=== PATIENT | male | born 1990 | race Two or more races ===

== ENCOUNTER 2017-11-28 07:04 | Emergency (ER) | payer OTHER ==
[~2017-11-28] VITALS: Ht 167.6 cm; Wt 81.6 kg
[~2017-11-28 07:04] MED LIST: CEPH-264 PO; OXYC-323 PO
[2017-11-28 07:05] VITALS: BP 152/84
--- NOTE | 2017-11-28 07:18 | PHYS DOC ---
Past Medical History Past Medical History: No Pertinent History Past Surgical History: Appendectomy Alcohol Use: None Drug Use: None Adult General Chief Complaint Chief Complaint: SORE THROAT HPI HPI Patient is a 26-year-old male who presents with complaint of cough and wheezing as well as shortness of breath. Patient states that yesterday he had come in contact with some sawdust. 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 He states that at that time he used to have an inhaler that he used. He states that was about 5-6 years ago. He indicates he is not had any real problems with wheezing since that time. He states that today he is having difficulty with breathing. He denies any chest pain or fever. He does admit to sore throat and feels like he has a stab in his throat every time he swallows. Review of Systems Review of Systems Constitutional: Denies fever or chills [] Eyes: Denies change in visual acuity, redness, or eye pain [] HENT: Denies nasal congestion or sore throat [] Respiratory: Denies cough or shortness of breath [] Cardiovascular: No additional information not addressed in HPI [] GI: Denies abdominal pain, nausea, vomiting, bloody stools or diarrhea [] : Denies dysuria or hematuria [] Musculoskeletal: Denies back pain or joint pain [] Integument: Denies rash or skin lesions [] Neurologic: Denies headache, focal weakness or sensory changes [] Endocrine: Denies polyuria or polydipsia [] All other systems were reviewed and found to be within normal limits, except as documented in this note. Current Medications Current Medications Current Medications Medications (Trade) Dose Ordered Sig/Sofie Start Time Stop Time Status Last Admin Dose Admin Albuterol/ Ipratropium (Duoneb) 3 ml 1X ONCE 11/28/17 07:45 11/28/17 07:46 DC 11/28/17 07:34 3 ML Allergies Allergies Allergies Coded Allergies Type Severity Reaction Last Updated Verified No Known Drug Allergies 02/24/16 No Physical Exam Physical Exam Constitutional: Well developed, well nourished, no acute distress, non-toxic appearance. [] HENT: Normocephalic, atraumatic, bilateral external ears normal, oropharynx moist, no oral exudates, nose normal. [] Eyes: PERRLA, EOMI, conjunctiva normal, no discharge. [] Neck: Normal range of motion, no tenderness, supple, no stridor. [] Cardiovascular:Heart rate regular rhythm, no murmur [] Lungs & Thorax: Bilateral breath sounds clear to auscultation [] Abdomen: Bowel sounds normal, soft, no tenderness, no masses, no pulsatile masses. [] Skin: Warm, dry, no erythema, no rash. [] Back: No tenderness, no CVA tenderness. [] Extremities: No tenderness, no cyanosis, no clubbing, ROM intact, no edema. [] Neurologic: Alert and oriented X 3, normal motor function, normal sensory function, no focal deficits noted. [] Psychologic: Affect normal, judgement normal, mood normal. [] Current Patient Data Vital Signs Vital Signs Date Time Temp Pulse Resp B/P (MAP) Pulse Ox O2 Delivery O2 Flow Rate FiO2 11/28/17 07:37 99 Room Air 11/28/17 07:05 97.5 89 16 152/84 (106) 97.5 Lab Values Laboratory Tests Test 11/28/17 07:18 Group A Streptococcus Rapid Negative (NEGATIVE) EKG EKG [] Radiology/Procedures Radiology/Procedures [] Course & Med Decision Making Course & Med Decision Making Pertinent Labs and Imaging studies reviewed. (See chart for details) Patient reevaluated after breathing treatment and does report improvement in his breathing. Auscultation of the lungs reveals improved air movement with decreased wheezing. Dragon Disclaimer Dragon Disclaimer This electronic medical record was generated, in whole or in part, using a voice recognition dictation system. Departure Departure Impression: Primary Impression: Reactive airway disease Additional Impression: Pharyngitis Disposition: HOME, SELF-CARE Condition: STABLE Referrals: NO PCP (PCP) Patient Instructions: Asthma, Adult, Viral Pharyngitis Additional Instructions: Take prescribed medication as directed and follow-up with your primary care provider in the next few days. Scripts Methylprednisolone (MEDROL) 4 Mg Tab.ds.pk 1 PKG PO UD, #1 PKG Prov: VITA MELENDREZ Jr. DO 11/28/17 Albuterol Sulfate (VENTOLIN HFA INHALER) 18 Gm Hfa.aer.ad 2 PUFF INH QID PRN for WHEEZING, #1 INHALER 0 Refills Prov: VITA MELENDREZ Jr. DO 11/28/17 Problem Qualifiers Primary Impression: Reactive airway disease Asthma severity: mild Asthma persistence: unspecified Qualified Codes: J45.909 - Unspecified asthma, uncomplicated Additional Impression: Pharyngitis Pharyngitis/tonsillitis etiology: unspecified etiology Qualified Codes: J02.9 - Acute pharyngitis, unspecified VITA MELENDREZ Jr. DO Nov 28, 2017 07:18
[2017-11-28] MEDS ORDERED: IPRATRPIUM/ALBUTEROL 0.5/2.5MG 3 ML NEBU. NEB ONE (07:45)
[2017-11-28] MEDS ORDERED: METH4TAB2 PO (08:57)
[2017-11-28] MEDS ORDERED: VENTOLIN HFA18 GM INH (08:57)
== END 2017-11-28 09:11 | disposition home or self-care (01) ==
LOC: ER 07:04
DX: J45.909 Unspecified asthma, uncomplicated (principal); J02.9 Acute pharyngitis, unspecified
CPT/HCPCS: 87070; 87880; 94640; 99284; J7620